=== PATIENT | male | born 1995 | race Caucasian/White ===

== ENCOUNTER 2016-06-09 13:14 | Emergency (ER) | payer BC ==
[2016-06-09 14:02] VITALS: BP 105/50; PULSE 54; RESP 16; TEMP 98.1; O2SAT 96
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
== END 2016-06-09 15:37 | disposition home or self-care (01) ==
DX: S63.698A Other sprain of other finger, initial encounter (principal); W18.40XA Slipping, tripping and stumbling without falling, unspecified, initial encounter
CPT/HCPCS: L3807

== ENCOUNTER 2017-05-25 12:02 | Emergency (ER) | payer BC ==
[2017-05-25 12:07] VITALS: BP 112/70; PULSE 85; RESP 20; TEMP 99.7; O2SAT 95
--- NOTE | 2017-05-25 12:19 | EDPHY ---
H & P Stated Complaint: fever, cough starting night Time Seen by Provider: 05/25/17 12:09 HPI/ROS: CHIEF COMPLAINT: Flu-like symptoms x 3 days HISTORY OF PRESENT ILLNESS: 22-year-old immunocompetent male with up-to-date seasonal influenza vaccination complaining 3 days of flu-like symptoms, fever, chills, intermittently productive cough, sore throat. No chest pain. No back pain. No abdominal pain. No dyspnea. No rash. No international travel. No nuchal rigidity REVIEW OF SYSTEMS: A ten point review of systems was performed and is negative with the exception of the items mentioned in the HPI PAST MEDICAL & SURGICAL HISTORY: Influenza vaccination up-to-date SOCIAL HISTORY: Nonsmoker student PHYSICAL EXAM (Prior to examination, patient consented to physical exam, hands were washed and my usual and customary physical exam procedures followed) 1) GENERAL: Well-developed, well-nourished, alert and oriented. Appears nontoxic. 2) HEAD: Normocephalic, atraumatic 3) HEENT: Pupils equal, round, reactive to light bilaterally. Sclera anicteric. Nasopharynx, oropharynx, clear, no lesions. No tonsillar enlargement or exudate Ears bilaterally with normal tympanic membranes. 4) NECK: Full range of motion, no meningeal signs. 5) LUNGS: Clear auscultation bilaterally, no wheezes, no rhonchi, no retractions. 6) HEART: Regular rate and rhythm, no murmur, no heave, no gallop. 7) ABDOMEN: No guarding, no rebound, no focal tenderness, negative McBurney's, negative Singh's, negative Rovsing's, negative peritoneal sign, 8) MUSCULOSKELETAL: Moving all extremities, no focal areas of tenderness, no obvious trauma. No peripheral edema or discoloration. 9) BACK: No CVA tenderness, no midline vertebral tenderness, no fluctuance, no step-off, no obvious trauma, no visual or palpable abnormality. 10) SKIN: No rash, no petechiae. 11) Psychiatric: Patient is oriented X 3, there is no agitation. DIFFERENTIAL DIAGNOSIS: In no particular include but limited to pneumonia, influenza, bronchitis - Personal History Current Tetanus/Diphtheria Vaccine: Unsure Current Tetanus Diphtheria and Acellular Pertussis (TDAP): Unsure - Medical/Surgical History Hx Asthma: No Hx Chronic Respiratory Disease: No Hx Diabetes: No Hx Cardiac Disease: No Hx Renal Disease: No Hx Cirrhosis: No Hx Alcoholism: No Hx HIV/AIDS: No Hx Splenectomy or Spleen Trauma: No Other PMH: eye surgery,hernia repair, ADHD - Social History Smoking Status: Never smoked Constitutional: Initial Vital Signs Temperature (C) 37.6 C 05/25/17 12:04 Heart Rate 85 05/25/17 12:04 Respiratory Rate 20 05/25/17 12:04 Blood Pressure 112/70 05/25/17 12:04 O2 Sat (%) 95 05/25/17 12:04 O2 Delivery Mode Room Air Allergies/Adverse Reactions: No Known Allergies Allergy (Verified 05/25/17 12:04) Home Medications: Medication Instructions Recorded ADDERALL 12.5 MG TABLET 05/25/17 Benzonatate [Tessalon Pearles (RX)] 200 mg PO TID PRN #15 cap 05/25/17 Medical Decision Making ED Course/Re-evaluation: Patient's symptoms are more than likely secondary to viral etiology. We discussed possible influenza. For these reasons, I do not feel antibiotics are currently indicated. Will hold on influenza testing as treatment will be supportive in nature. He has maintain normal saturations. In addition, I do not identify indication for chest x-ray as the patient's lungs are clear bilaterally, has a normal pulse ox, speaking full sentences, no signs of respiratory distress. The patient understands that this diagnosis is provisional and can never be 100% accurate. Usual and customary warnings were given concerning the clinical impression and all the patient's questions were answered. The patient was instructed to return to the emergency department should her symptoms worsen or return, or develop any new symptoms, otherwise to followup as directed in discharge instructions. Care of patient under supervision of primary supervising physician Dr Shantanu Garrison . Departure - Departure Disposition: Home, Routine, Self-Care Clinical Impression: URI (upper respiratory infection) Qualifiers: URI type: unspecified viral URI Qualified Code(s): J06.9 - Acute upper respiratory infection, unspecified Condition: Good Instructions: Upper Respiratory Infection (ED) Additional Instructions: Return to the emergency department immediately for change in breathing habits, change in voice, change in swallowing habits, change in mental status, or any other symptoms that concern you. Adult Pain & Fever Control: We recommend Acetaminophen (Tylenol) and Ibuprofen (Motrin,Advil) for pain and fever control. When fever is high or pain severe, both drugs can be used at the same time, but at different intervals. Please note the time differences. Your dose is: Acetaminophen [650mg every 4 to 6 hours Ibuprofen 600mg every 6 hours with food OR Note: do not take Acetaminophen with Hydrocodone (Vicodin, Lortab) or Oycodone (Percocet). These medications also contain Acetaminophen. No more than 3000mg of Acetaminophen should be taken in 24 hours (for an adult). Referrals: [facility] [Clinic] - 3-4 days, if not improved Stand Alone Forms: School Excuse Prescriptions: Benzonatate [Tessalon Pearles (RX)] 200 mg PO TID PRN #15 cap PRN Reason: Cough, Moderate
== END 2017-05-25 12:41 | disposition home or self-care (01) ==
DX: J06.9 Acute upper respiratory infection, unspecified (principal)